=== PATIENT | male | born 1980 | race Hispanic/Latino ===

== ENCOUNTER → 2017-09-25 | Outpatient (CLI) | payer OTHER ==
[~2017-09-25] MED LIST: METF10004 PO
== END | disposition home or self-care (01) ==
LOC: DTH 13:09
PROVIDERS: ATTEND Surgery
DX: E66.01 Morbid (severe) obesity due to excess calories (principal)
CPT/HCPCS: 97802

== ENCOUNTER → 2017-10-24 | Outpatient (CLI) | payer OTHER | LOC: DTH 11:10 | PROVIDERS: ATTEND Surgery | DX: E66.01 Morbid (severe) obesity due to excess calories (principal) | CPT/HCPCS: 97803 ==

== ENCOUNTER 2017-10-30 08:34 | Inpatient (IN) | payer OTHER ==
[2017-10-24 12:40] VITALS: BP 138/80
[2017-10-24 13:02] LABS: BASOPHILS % (AUTO) 0.7 % (0.0-5.0); EOSINOPHILS % (AUTO) 2.6 % (0.0-8.0); HEMATOCRIT 45.7 % (42-54); LYMPHOCYTES % (AUTO) 21.2 % (21.0-51.0); MEAN CORPUSCULAR HEMOGLOBIN 28.2 pg (27.0-33.0); MEAN CORPUSCULAR HGB CONC 34.3 g/dL (32.0-36.0); MEAN CORPUSCULAR VOLUME 82.3 fL (79-99); MONOCYTES % (AUTO) 6.3 % (3.0-13.0); NEUTROPHILS % (AUTO) 69.2 % (40.0-77.0); PLATELET COUNT (AUTO) 328 K/uL (130-400); RED BLOOD CELL COUNT(AUTO) 5.55 MIL/uL (4.50-6.20); RED CELL DISTRIBUTION WIDTH 12.7 % (11.0-15.5); WHITE BLOOD COUNT (AUTO) 8.4 K/uL (4.8-10.8)
[2017-10-24 13:03] LABS: HEMOGLOBIN A1C 9.9 % (4.0-6.0)
[2017-10-24 13:09] LABS: INR 0.92 (0.85-1.15); PARTIAL THROMBOPLASTIN TIME 26.1 SEC (26.3-35.5); PROTHROMBIN TIME 9.7 SEC (9.6-11.6)
[2017-10-24 13:16] LABS: ALBUMIN 3.8 g/dL (3.5-5.0); BILIRUBIN,TOTAL 0.8 mg/dL (0.2-1.0); CREATININE 0.7 mg/dL (0.5-1.5); THYROID STIMULATING HORMONE 0.66 uIU/mL (0.36-3.74); TOTAL PROTEIN, SERUM 8.1 g/dL (6.0-8.3)
[~2017-10-30] VITALS: Ht 170.2 cm; Wt 137.3 kg
[2017-10-30] VITALS (32 sets, daily range): BP systolic 128–172; BP diastolic 76–111
[~2017-10-30 08:34] MED LIST changes: +CEFAZOLIN SODIUM 1 GM VIAL IVP SCH
[2017-10-30] MEDS ORDERED: SODIUM CHLORIDE 0.9% 1000ML 1,000 ML IV ONE (09:28)
[2017-10-30] MEDS: CEFAZOLIN SODIUM 1 GM VIAL ONE ×2 (09:28→10:11)
[2017-10-30] MEDS ORDERED: LIDOCAINE PF 2% 5ML ABBOJECT ONE (09:44)
[2017-10-30] MEDS ORDERED: DEXAMETHASONE SOD PHOSPHATE 10MG/ML 1ML VIAL ONE ×2 (09:44→10:57)
[2017-10-30] MEDS ORDERED: GLYCOPYRROLATE 0.2 MG/ML 5 ML VIAL ONE (09:44)
[2017-10-30] MEDS ORDERED: FENTANYL CITRATE PF 50 MCG/1 ML 2ML VIAL ONE (09:45)
[2017-10-30] MEDS ORDERED: MIDAZOLAM HCL 1 MG/ML 2ML VIAL ONE ×2 (09:45→09:47)
[2017-10-30] MEDS ORDERED: PROPOFOL 10 MG/ML 20ML VIAL IV ONE (09:45)
[2017-10-30] MEDS ORDERED: FENTANYL CITRATE PF 50 MCG/1 ML 5ML AMP IV ONE (09:48)
[2017-10-30] MEDS ORDERED: LIDOCAINE HCL 4% LTA SOL 4 ML VIAL ONE ×2 (10:15→10:57)
[2017-10-30] MEDS: BUPIVACAINE/PF 0.5% 30ML VIAL ONE (10:40)
[2017-10-30] MEDS ORDERED: ONDANSETRON HCL MDV 20ML 2 MG/ML VIAL ONE ×3 (10:57→15:25)
[2017-10-30] MEDS ORDERED: ROCURONIUM BROMIDE 10MG/1ML 5ML VL ONE ×3 (10:57)
[2017-10-30] MEDS ORDERED: MORPHINE SULFATE 5 MG/ML VIAL IVP PRN (11:00)
[2017-10-30] MEDS ORDERED: ONDANSETRON HCL 4 MG/2 ML VIAL IVP PRN (11:00)
[2017-10-30] MEDS ORDERED: CEFAZOLIN SODIUM 1 GM VIAL IVP SCH (11:15)
[2017-10-30] MEDS ORDERED: MEPERIDINE-PF 25 MG/ML SYG ONE ×2 (11:31→11:44)
[2017-10-30] MEDS ORDERED: LABETALOL HCL 5 MG/ML 20ML VIAL IV ONE (11:54)
[2017-10-30] MEDS ORDERED: HYDRALAZINE HCL 20 MG/ML VIAL ONE (12:17)
[2017-10-30] MEDS ORDERED: DEXTROSE 50%-WATER 50 ML DISP.SYRIN IV PRN (14:30)
[2017-10-30] MEDS ORDERED: GLUCAGON 1MG KIT 1 MG ML IM PRN (14:30)
[2017-10-30] MEDS: LACTATED RINGERS 1000ML 1,000 ML IV SCH ×2 (14:57→22:27)
[2017-10-30] MEDS ORDERED: MORPHINE SULFATE 4 MG/1ML SYG ONE (15:09)
[2017-10-30] MEDS ORDERED: HYDRALAZINE HCL 20 MG/ML VIAL IV PRN (16:15)
[2017-10-30] MEDS: METFORMIN HCL 500 MG TABLET PO SCH (17:00)
[2017-10-30] MEDS: INSULIN HUMULIN R 100 UNIT/ML 3ML SQ SCH ×2 (17:29→21:00)
[2017-10-30] MEDS: CEFAZOLIN SODIUM 1 GM VIAL IVP SCH (17:30)
[2017-10-30] MEDS ORDERED: MORPHINE SULFATE 2 MG/ML 1ML SYG ONE (20:03)
[2017-10-30] MEDS: FAMOTIDINE/PF 20 MG/2 ML VIAL IV SCH (20:09)
[2017-10-30] MEDS: ENOXAPARIN SODIUM 30 MG/0.3 ML SQ SCH (20:10)
[2017-10-30] MEDS ORDERED: METOCLOPRAMIDE 10 MG/2 ML VIAL IVP PRN (21:45)
[2017-10-30] MEDS: METOPROLOL TARTRATE 1 MG/ML 5ML VIAL IV PRN (22:22)
[2017-10-30] MEDS: ONDANSETRON HCL MDV 20ML 2 MG/ML VIAL IVP PRN (23:56)
[2017-10-31] VITALS (7 sets, daily range): BP systolic 156–180; BP diastolic 81–100
[2017-10-31] MEDS ORDERED: MORPHINE SULFATE 4 MG/1ML SYG ONE ×2 (01:26→06:18)
[2017-10-31] MEDS: CEFAZOLIN SODIUM 1 GM VIAL IVP SCH (01:56)
[2017-10-31] MEDS: LACTATED RINGERS 1000ML 1,000 ML IV SCH ×3 (02:58→23:43)
[2017-10-31 05:17] LABS: BASOPHILS % (AUTO) 0.6 % (0.0-5.0); HEMATOCRIT 44.1 % (42-54); LYMPHOCYTES % (AUTO) 8.4 % (21.0-51.0); MEAN CORPUSCULAR HEMOGLOBIN 28.8 pg (27.0-33.0); MEAN CORPUSCULAR VOLUME 82.3 fL (79-99); PLATELET COUNT (AUTO) 332 K/uL (130-400); RED BLOOD CELL COUNT(AUTO) 5.36 MIL/uL (4.50-6.20); RED CELL DISTRIBUTION WIDTH 12.9 % (11.0-15.5); WHITE BLOOD COUNT (AUTO) 9.5 K/uL (4.8-10.8)
[2017-10-31 05:25] LABS: CREATININE 0.8 mg/dL (0.5-1.5); POTASSIUM 3.7 mmol/L (3.5-5.1)
[2017-10-31] MEDS: ONDANSETRON HCL MDV 20ML 2 MG/ML VIAL IVP PRN ×3 (06:20→17:39)
[2017-10-31] MEDS: INSULIN HUMULIN R 100 UNIT/ML 3ML SQ SCH ×4 (06:26→21:00)
[2017-10-31] MEDS: METFORMIN HCL 500 MG TABLET PO SCH ×2 (08:00→17:33)
[2017-10-31] MEDS ORDERED: DIATR MEGLU/DIATRIZOATE SODIUM 30 ML BOTTLE ONE (08:22)
[2017-10-31] MEDS ORDERED: ENOXAPARIN SODIUM 30 MG/0.3 ML SQ ONE (09:12)
[2017-10-31] MEDS: FAMOTIDINE/PF 20 MG/2 ML VIAL IV SCH ×2 (09:50→23:41)
[2017-10-31] MEDS: ENOXAPARIN SODIUM 30 MG/0.3 ML SQ SCH ×2 (09:52→23:43)
[2017-10-31] MEDS ORDERED: MORPHINE SULFATE 8 MG/ML VIAL ONE ×2 (10:53→18:55)
[2017-10-31] MEDS: METOPROLOL TARTRATE 1 MG/ML 5ML VIAL IV PRN (11:20)
[2017-10-31] MEDS ORDERED: INSULIN HUMULIN R 100 UNIT/ML 3ML SQ ONE (17:29)
[2017-10-31] MEDS ORDERED: SCOPOLAMINE HYDROBROMIDE 1 EACH ADH..PATCH TD SCH (21:45)
[2017-10-31] MEDS ORDERED: HYDROCORTISONE SOD SUCCINATE 100 MG/2 ML VIAL IV SCH (22:00)
[2017-11-01] VITALS: BP 169/88
[2017-11-01] MEDS: ACETAMINOPHEN-CODEINE ELIXIR 5 ML UDCUP PO PRN ×2 (00:04→12:58)
[2017-11-01] MEDS: LACTATED RINGERS 1000ML 1,000 ML IV SCH (02:58)
[2017-11-01 04:00] VITALS: BP 146/75
[2017-11-01] MEDS: INSULIN HUMULIN R 100 UNIT/ML 3ML SQ SCH (05:46)
[2017-11-01] MEDS ORDERED: METOCLOPRAMIDE 10MG/10ML UDCUP PO SCH (07:30)
[2017-11-01 08:00] VITALS: BP 165/92
[2017-11-01] MEDS: METFORMIN HCL 500 MG TABLET PO SCH (10:52)
[2017-11-01] MEDS: ENOXAPARIN SODIUM 30 MG/0.3 ML SQ SCH (10:53)
[2017-11-01 12:00] VITALS: BP 152/71
== END 2017-11-01 14:29 | disposition home or self-care (01) | DRG 621 ==
LOC: DAHIP 08:34 → 4BH 12:59
PROVIDERS: ADMIT Surgery; ATTEND Surgery
PROC: 0DB64Z3 Excision of Stomach, Percutaneous Endoscopic Approach, Vertical (ICD-10-PCS; principal; 2017-10-30 10:00)
PROC: 0DJ08ZZ Inspection of Upper Intestinal Tract, Via Natural or Artificial Opening Endoscopic (ICD-10-PCS; 2017-10-30 10:00)
DX: E66.01 Morbid (severe) obesity due to excess calories (principal); E10.9 Type 1 diabetes mellitus without complications; Z68.42 Body mass index [BMI] 45.0-49.9, adult
CPT/HCPCS: 36415; 71045; 74240; 80048; 80053; 80061; 82948; 83036; 84443; 85025; 85610; 85730; 86850; 86900; 86901; 88307; 88342; 94760; A4218; A4606; J0360; J0690; J1100; J1650; J1720; J1815; J2001; J2175; J2250; J2270; J2704; J3010; J3490; J7030; J7120; Q9963